=== PATIENT | male | born 1970 | race African-American/Black ===

== ENCOUNTER 2017-11-01 09:02 | Emergency (ER) | payer OTHER ==
[~2017-11-01] VITALS: Ht 182.9 cm; Wt 73.0 kg
[2017-11-01 09:10] VITALS: BP 134/87
== END 2017-11-01 12:01 | disposition home or self-care (01) ==
LOC: ER 09:10
DX: Z48.02 Encounter for removal of sutures (principal); F12.10 Cannabis abuse, uncomplicated; X58.XXXD Exposure to other specified factors, subsequent encounter
CPT/HCPCS: 99281